=== PATIENT | female | born 1960 | race African-American/Black ===

== ENCOUNTER 2021-04-28 10:13 | Emergency (ER) | payer MEDICARE, MEDICAID ==
[~2021-04-28] VITALS: Ht 165.1 cm; Wt 69.0 kg
[2021-04-28] MEDS ORDERED: MORPHINE SULFATE 4 MG/ML CPJ (NOT FOR IM USE) IV STA (10:26)
[2021-04-28] MEDS ORDERED: ONDANSETRON HCL 4MG/2ML INJ IV STA (10:26)
[2021-04-28] MEDS ORDERED: FAMOTIDINE 20MG/2ML VIAL IV STA (10:26)
[2021-04-28] MEDS ORDERED: SODIUM CHLORIDE 0.9% 1,000 ML IV ONE (10:30)
[2021-04-28 10:44] LABS: BASOPHILS % 0.7 % (0.0-2.0); EOSINOPHILS % 0.1 % (0.0-5.0); HEMATOCRIT. 47.7 % (36.0-48.0); HEMOGLOBIN. 16.7 g/dL (12.0-16.0); LYMPHOCYTES % 18.8 % (20.0-50.0); MEAN CORPUSCULAR HEMOGLOBIN 29.7 pg (28.0-32.0); MONOCYTES % 7.8 % (2.0-8.0); NEUTROPHILS % 72.6 % (40.0-76.0); PLATELET 344 x1000/uL (130-400); RED BLOOD CELL COUNT 5.61 mill/uL (4.2-5.4)
[2021-04-28 10:50] LABS: CHLORIDE 100 mEq/L (98-107)
[2021-04-28 13:12] LABS: CLARITY URINE CLEAR (CLEAR); COLOR URINE DARK YELLOW (YELLOW); KETONES URINE 4+ (NEGATIVE); LEUKOCYTE ESTERASE URINE 1+ (NEGATIVE); NITRITE URINE NEGATIVE (NEGATIVE); OCCULT BLOOD URINE NEGATIVE (NEGATIVE); PROTEIN URINE 2+ (NEGATIVE); SPECIFIC GRAVITY URINE 1.032 (1.005-1.030); UROBILINOGEN URINE 0.2 E.U./dL (0.2-1.0)
[2021-04-28] MEDS ORDERED: IOHEXOL-300 100 ML BOTTLE ONE (13:45)
[2021-04-28] MEDS ORDERED: CEFTRIAXONE 1 G PREMIX 50 ML IV ONE (14:15)
[2021-04-28] MEDS ORDERED: ONDA4TAB5 MT (14:20)
[2021-04-28] MEDS ORDERED: SULF1TAB48 MT (14:20)
[2021-04-28 15:27] VITALS: BP 157/86
== END 2021-04-28 15:36 | disposition home or self-care (01) ==
LOC: ER 10:13
DX: R11.10 Vomiting, unspecified (principal); R19.7 Diarrhea, unspecified; E86.0 Dehydration; N30.00 Acute cystitis without hematuria; I48.91 Unspecified atrial fibrillation
CPT/HCPCS: 36415; 74177; 80053; 81003; 83690; 85025; 93005; 96361; 96365; 96375; 99285; J0696; J2270; J2405; J3490; J7030; Q9967